=== PATIENT | male | born 1980 | race Caucasian/White ===

== ENCOUNTER → 2017-11-17 12:08 | Outpatient (CLI) | payer MEDICARE, MEDICAID, SELFPAY ==
--- NOTE | 2017-11-17 12:17 | RAD_ITS ---
STUDY: X-RAY CHEST REASON FOR EXAM: Male, 37 years old. Chest pain TECHNIQUE: PA and lateral COMPARISON: None. FINDINGS: The lungs are clear and expanded. There is no demonstrated pleural abnormality. Normal size heart. Normal mediastinum and lavelle. Normal visualized pulmonary arteries. Normal visualized aortic arch and descending thoracic aorta. Normal visualized thoracic spine. Normal visualized ribs, clavicles, and shoulders. There is no demonstrated abnormality of the visualized soft tissue structures of the upper abdomen. RAD/Chest PA and Lateral IMPRESSION: Normal x-ray examination of the chest. Electronically Signed: Peter Hawk MD at 4:45 EDT , Service support ,
== END ==
PROVIDERS: Family Provider Family Medicine; PCP Family Medicine; Visit Provider Family Medicine
DX: R07.9 Chest pain, unspecified (principal)
CPT/HCPCS: 71046

== ENCOUNTER → 2022-07-17 | Outpatient (CLI) | payer OTHER, SELFPAY ==
[2022-07-17 10:13] LABS: Absolute Neutrophil Count 2.4 X10^3/uL (2.0-7.7); Basophil# 0.03 X10^3/uL; Basophil% 0.7 % (0-1); Eosinophil# 0.08 X10^3/uL; Eosinophils% 1.8 % (0-5); Hematocrit 43.3 % (40-54); Hemoglobin 14.6 g/dL (13.0-16.5); Lymphocyte % 34.2 % (19-41); Mean Corp Hgb Conc 33.7 g/dL (32-36); Mean Corpuscular Volume 88.9 fL (80-94); Mean Platelet Vol. 11.2 fl (6.2-12.0); Monocyte# 0.37 X10^3/uL; Monocyte% 8.4 % (0-10); NRBC Flagged by Analyzer 0 % (0-5); Neutrophil % 54.7 % (47-70); Platelet Count 231 K/mm3 (150-450); RBC Distribution Width CV 12.6 % (11.6-14.6); RBC Distribution Width SD 41.2 fl (35.1-43.9); Red Blood Count 4.87 M/mm3 (4.6-6.2); White Blood Count 4.4 K/mm3 (4.4-11.0)
[2022-07-17 10:58] LABS: AST(SGOT) 25 U/L (15-37); Alanine Aminotransfer ALT/SGPT 22 U/L (16-61); Albumin, Serum 3.8 g/dL (3.2-5.0); Alkaline Phosphatase 52 U/L (45-117); Anion Gap 8 (5-15); BUN 16 mg/dL (7-18); BUN/Creat Ratio 15.1 RATIO (10-20); CRP < 2.90 mg/L (0.0-3.0); Calcium,Total 8.9 mg/dL (8.5-10.1); Chloride 104 mmol/L (98-107); Cholesterol 285 mg/dL (200); Creatinine, Serum 1.06 mg/dL (0.70-1.30); EST Glomerular Filtration Rate 81 mL/min (>60); Est Glom Filt Rate - Afr Amer 98 mL/min (>60); Glucose 103 mg/dL (74-106); High Density Lipoprotein 69 mg/dL; Potassium 4.2 mmol/L (3.5-5.1); Protein, Total 7.8 g/dL (6.4-8.2); Sodium Level 136 mmol/L (136-145); Triglycerides 116 mg/dL; Very Low Density Lipoprotein 23 mg/dL (5-40)
== END | disposition home or self-care (01) ==
LOC: MFPLAB 08:52
PROVIDERS: PCP Family Medicine; Referring Provider Family Medicine; Visit Provider Family Medicine
DX: R10.32 Left lower quadrant pain (principal); Z13.220 Encounter for screening for lipoid disorders
CPT/HCPCS: 36415; 80053; 80061; 85025; 86140

== ENCOUNTER → 2022-09-25 | Outpatient (CLI) | payer OTHER, SELFPAY ==
--- NOTE | 2022-09-25 07:08 | CT_ITS ---
STUDY: CT ABDOMEN AND PELVIS WITH CONTRAST REASON FOR EXAM: Male, 42 years old. Several month history of left upper quadrant pain. RADIATION DOSAGE (If Supplied By Facility): CTDIvol = ( 12.89 ) mGy, DLP = ( 679.23 ) mGycm TECHNIQUE: Transaxial images were obtained from the dome of the diaphragm to the symphysis pubis with oral contrast. Oral and amp; IV Readi-CAT and amp; 100mL Isovue-370 was administered. Sagittal and coronal images were reconstructed. Individualized dose optimization techniques were used for this CT. COMPARISON: None. FINDINGS: The visualized lung bases are unremarkable. The visualized portions of the heart are within normal limits. Normal liver. Normal gallbladder and extrahepatic biliary system. Normal spleen. Normal pancreas. Normal bilateral adrenal glands. Normal right kidney. There is a 1 cm cyst in the lateral posterior aspect of the left kidney. There is a small hiatal hernia. Normal small intestine. Mild degree of thickening of the descending colon. Localized colitis should be ruled out. The appendix is visualized and appears normal. Normal abdominal aorta. Normal inferior vena cava. Normal retroperitoneum. Normal urinary bladder. There is a small umbilical hernia containing fat. Normal osseous structures. CT/Abdomen/Pelvis WITH Contrast IMPRESSION: Mild inflammatory changes of the descending colon. Localized colitis should be ruled out. Electronically Signed: Wayne Gray MD at 10:44 EDT ,
[2022-09-25 08:28] LABS: Absolute Lymphocyte Count 1.26 X10^3/uL (0.83-4.51); Absolute Neutrophil Count 3.1 X10^3/uL (2.0-7.7); Basophil# 0.03 X10^3/uL; Basophil% 0.6 % (0-1); Eosinophil# 0.09 X10^3/uL; Eosinophils% 1.8 % (0-5); Hematocrit 42.3 % (40-54); Hemoglobin 14.2 g/dL (13.0-16.5); Lymphocyte # 1.26 X10^3/ul (0.83-4.51); Lymphocyte % 25.5 % (19-41); Mean Corp Hgb Conc 33.6 g/dL (32-36); Mean Corpuscular Hgb 29.6 pg (27.0-32.0); Mean Corpuscular Volume 88.1 fL (80-94); Mean Platelet Vol. 11.1 fl (6.2-12.0); Monocyte# 0.43 X10^3/uL; Monocyte% 8.7 % (0-10); NRBC Flagged by Analyzer 0 % (0-5); Neutrophil # 3.13 X10^3/uL (2.7-7.7); Neutrophil % 63.2 % (47-70); Platelet Count 237 K/mm3 (150-450); RBC Distribution Width CV 12.5 % (11.6-14.6); RBC Distribution Width SD 40.4 fl (35.1-43.9)
[2022-09-25 09:07] LABS: ALB/GLOB Ratio 0.8 RATIO (0.9-2.4); AST(SGOT) 22 U/L (15-37); Alanine Aminotransfer ALT/SGPT 23 U/L (16-61); Albumin, Serum 3.4 g/dL (3.2-5.0); Alkaline Phosphatase 55 U/L (45-117); Anion Gap 5 (5-15); BUN 22 mg/dL (7-18); BUN/Creat Ratio 19.8 RATIO (10-20); CRP < 2.90 mg/L (0.0-3.0); Calcium,Total 8.8 mg/dL (8.5-10.1); Chloride 103 mmol/L (98-107); Creatinine, Serum 1.11 mg/dL (0.70-1.30); EST Glomerular Filtration Rate 77 mL/min (>60); Est Glom Filt Rate - Afr Amer 93 mL/min (>60); Globulin 4.1 g/dL (2.2-4.2); Glucose 98 mg/dL (74-106); Lipase 74 U/L (13-75); Potassium 4.2 mmol/L (3.5-5.1); Protein, Total 7.5 g/dL (6.4-8.2); Sodium Level 136 mmol/L (136-145)
== END | disposition home or self-care (01) ==
PROVIDERS: PCP Family Medicine; Referring Provider Family Medicine; Visit Provider Family Medicine
DX: R10.12 Left upper quadrant pain (principal)
CPT/HCPCS: 36415; 74177; 80053; 83690; 85025; 86140; Q9967

== ENCOUNTER 2022-12-03 07:21 | Day surgery (SDC) | payer OTHER, SELFPAY ==
[2022-12-03 07:42] VITALS: BP 136/91; PULSE 69; RESP 16; TEMP 36.8; O2SAT 96; BMI 26.4
[2022-12-03] MEDS: Lactated Ringers 1,000 ML 15 ML IV ×2 (07:56→08:55)
--- NOTE | 2022-12-03 08:30 | IMM_PTH ---
PATIENT: JENNIFER TINAJERO LOC: EN U#:[id number] AGE/SX: 42/M ROOM: RE12/03/[address]: Dr. Venancio Maldonado MD : 1980 BED: DIS: 12/03/2022 SPEC #: [id number] RECD: 12/03/22 13:18 STATUS: JIM REEde #: [id number] BASILIO: 12/03/22 08:[address]: Venancio Maldonado DEPT: IMMUNOHISTOCHEMISTRY RECD BY: Maia Horner ENTERED: 12/03/22 13:18 SP TYPE: IMMUNO OTHR DR: Dr. Salomon Shukla MD Tissues: B - Stomach, NOS Procedures: H Pylori (initial) PHYSICIAN & INSTITUTION [place] [address] SPECIMEN INFORMATION: Tissue Source: B - Antrum Clinical Info: Left-sided abdominal pain, abnormal CT abdomen, hiatal hernia, colon wall thickening Specimen Number: [id number] CPT code: 34635 METHODOLOGY: Deparaffinized sections of prefer/formalin-fixed tissue or PAP/DQ stained slides are incubated with monoclonal/polyclonal antibodies/oligonucleotide probes. Localization is made via biotin free immunoperoxidase method. Appropriate controls are performed and reacted as expected. Results on target cell population are indicated in the following table: RESULTS: ANTIBODY / CLONE RESULT Block B H Pylori (polyclonal) negative These tests were developed and their performance characteristics determined by [facility]. They may not have been cleared or approved by the U.S. Food and Drug Administration. The FDA has determined that such clearance or approval is not necessary. The above immunohistochemical/dualISH markers are ordered and reviewed by the Pathologist. INTERPRETATION: B. Antrum, biopsy: Negative for Helicobacter pylori organisms. AM:melissa 12/04/2022
--- NOTE | 2022-12-03 08:30 | EGD_PTH ---
PATIENT: JENNIFER TINAJERO LOC: [facility] U#:[id number] AGE/SX: 42/M ROOM: RE12/03/[address]: Dr. Venancio Maldonado MD : 1980 BED: DIS: 12/03/2022 SPEC #: [id number] RECD: 12/03/22 11:05 STATUS: JIM BARRIENTOSEde #: [id number] BASILIO: 12/03/22 08:[address]: Venancio Maldonado DEPT: SURGICAL PATHOLOGY RECD BY: Domitila Tyson ENTERED: 12/03/22 11:19 SP TYPE: EGD BIOPSY OTHR DR: Dr. Salomon Shukla MD Tissues: A - Duodenum, NOS B - Gastric mucous membrane C - Esophagus, NOS D - POLYP E - Esophagus, NOS Procedures: Special Stain Group II Surgery Specimen Level IV Alcian Blue/PAS (control) HEADER OPERATION: Colonoscopy, EGD with biopsies and polypectomy (MAC) PRE-OP DIAGNOSIS: Left-sided abdominal pain, abnormal CT abdomen, hiatal hernia, colon wall thickening TISSUE SUBMITTED: A - Duodenal bulb mucosa biopsy, B - Antrum biopsy for H. pylori and path, C - Gastroesophageal junction biopsy, D - Polypoid mass at gastroesophageal junction, E - Mid esophageal nodule biopsy MICROSCOPIC DIAGNOSIS A. Duodenal bulb, biopsy: No pathologic change. B. Gastric antrum, biopsy: Minimal chronic inflammation. See comment. C. Gastroesophageal junction, biopsy: No pathologic change. No evidence of goblet cell metaplasia. See comment. D. Polypoid mass at gastroesophageal junction, biopsy: Fragments of hyperplastic polyp. E. Mid esophageal nodule, biopsy: Fragments of benign squamous mucosa. AM:melissa 12/04/2022 COMMENT B. The results of immunohistochemistry for Helicobacter pylori will be reported separately ([id number]). C. Alcian blue/PAS stain with matched control supports the above diagnosis. MICROSCOPIC DESCRIPTION Slides are reviewed. GROSS DESCRIPTION A - Received in fixative is one container labeled with the patient's name and designated duodenal bulb mucosa. The specimen consists of two irregular fragments of light cook soft tissue that in aggregate measure 0.5 x 0.5 x 0.1 cm. The specimen is totally submitted in one cassette. B - Received in fixative is one container labeled with the patient's name and designated antrum biopsy. The specimen consists of one irregular fragment of light cook soft tissue that measures 0.4 x 0.4 x 0.1 cm. The specimen is totally submitted in one cassette. C - Received in fixative is one container labeled with the patient's name and designated GE junction biopsy. The specimen consists of multiple irregular fragments of light cook soft tissue that in aggregate measure 0.5 x 0.3 x 0.1 cm. The specimen is totally submitted in one cassette. D - Received in fixative is one container labeled with the patient's name and designated polypoid mass at GE junction. The specimen consists of multiple irregular fragments of light cook soft tissue that in aggregate measure 1.5 x 0.7 x 0.2 cm. The specimen is totally submitted in one cassette. E - Received in fixative is one container labeled with the patient's name and designated mid esophageal nodule. The specimen consists of multiple irregular fragments of light cook soft tissue that in aggregate measure 1.2 x 0.3 x 0.1 cm. The specimen is totally submitted in one cassette. / SJ:rg 12/03/2022 TC:3 CPT: 30187 x5, 84990
--- NOTE | 2022-12-03 08:35 | PCM.HP.BLA ---
History and Physical Date of Admission: 12/03/22 MR#: [id number] Acct: [id number] Name: JENNIFER TINAJERO Rep #: [id number] : 1980 Provider: Dr. Venancio Maldonado MD Age/Sex: 42/M Location: [facility] Status: Signed Intake Vital Signs 10/06/2313:54 Height 5 ft 9 in Weight: 190 lb BMI 28.0 BP 132/89 H Blood Pressure Location Rt brachial Position Sitting Respiration 17 Pulse 77 Pulse Source Monitor Temp 98.1 F Temp Source Temporal Pulse Oximetry (%) 97 Intake Visit Reasons: UPPER & LOWER Chief Complaint: ABD PAIN Allergies No Known Allergies Allergy (Unverified 10/06/22 14:55) Nurse's Note: PT USES [employer] PFSH Medical History (Updated 10/06/22 @ 16:[address] Venancio Maldonado MD) History of recreational drug use Right hand amputee Family History (Updated 10/06/22 @ 14:54 by Reema Siddiqi) Grandmother Colon cancerGrandfather Heart diseaseAunt CVA (cerebral vascular accident) HPI HPI HPI: Patient is a 42-year-old male who presents for need to schedule diagnostic colonoscopy secondary to left lower quadrant discomfort. They are referred for surgical consultation from Dr. Salomon Shukla. Patient has not had prior colonoscopy. He states that his pain is actually in the left upper quadrant and has remained uncomfortable for a few months. However, I pointed out that we were due to visit June 2022 he states that his symptoms preceded this date by a couple of months as well. He reports that he initially believed this was related to a back injury, but then it became clear this was more of an abdominal concern. He states of late he has felt pain and pressure. He he insists that his bowel movements have been normal. He clarifies that they are nonbloody, formed, and he is not plagued by either diarrhea or constipation. He confirms a bowel movement frequency of 1/day. Further, he details that he has not had a loss of appetite. He states that while he drinks water, coffee, and beer he has drastically cut back on his coffee so that he is drinking just 1 cup/day. He endorses a history of acid reflux where he tastes acid burning in the back of his throat, but he states that this bothering him only occasionally. He is not experiencing nighttime awakenings with the symptoms. He denies any associated heartburn. Patient has a family history of colon cancer diagnosed in his paternal grandmother in her late 60s. He denies any awareness of diverticulitis or inflammatory bowel disease. Incidentally, he notes that his underwent a total abdominal proctocolectomy for her own history of ulcerative colitis. The patient is not prescribed anticoagulants/blood thinners. Relevant prior abdominal surgical history includes: No history of abdominal surgery Previous work-up has included: CT imaging of the abdomen pelvis performed 09/25/2022 which identified evidence of a hiatal hernia, small umbilical hernia, and localized colitis of the left colon. ROS General General: No weight change, appetite, fatigue, colon cancer, breast cancer or weakness HEENT HEENT: No difficulty swallowing, eye injury, eye surgery, swollen glands or hoarseness Endo Endocrine: No thyroid disease, diabetes mellitus, thyroid cancer, Hair loss, heat intolerance or cold intolerance Skin Skin: No rash or changing moles Breast Breast: No left breast lump, right breast lump, nipple discharge, breast pain, abnormal mammogram, abnormal US or breast enlargement Musc Musculoskeletal: Yes back problems; No arthritis, rheumatoid arthritis, gout or joint pain Cardio Cardiovascular: No murmur, pacemaker, heart disease, atrial fibrillation, high blood pressure, heart attack, heart stent, palpitations, shortness of breat with exertion or chest pain Psych Psychiatric: Yes anxiety; No depression or hearing voices Resp Respiratory: No shortness of breath, No sleep apnea, No cough, No COPD, No asthma, No emphysema and No wheezing Gastro Gastrointestinal: No abdominal pain, No nausea or vomiting, No diarrhea, No constipation, No blood in stool, Yes acid reflux, No hemorrhoids, No ulcers, No gallbladder problem and No black,tarry stools Steven Hematologic: No blood thinners, No blood disorders, No bleeding, No anemia and No blood clots Neuro Neurologic: No system reviewed and no additional complaints, except as documented, No as per HPI, No abnormal gait, No abnormal hearing, No abnormal movements, No abnormal speech, No behavioral changes, No burning sensations, No confusion, No convulsions, No disequilibrium, No dizziness, No localized weakness, No frequent falls, No headache(s), No lack of coordination, No loss of vision, No memory loss, No numbness, No other visual disturbances, No radicular pain, No restless legs, No sensory deficit, No syncope, No tingling, No tremor(s), No weakness and No other Exam Const General: cooperative, healthy appearing, comfortable and no acute distress Resp Effort & Inspection: normal respiratory effort GI Other: Toned abdomen without distention. Umbilical hernia readily visible and is partially reducible with mild tenderness. Patient denies any significant tenderness x4 quadrant palpation today. Assessment and Plan Assessment and Plan (1) Left sided abdominal pain: Status: Chronic Comment: This is a 42-year-old male who presents with a several month history of left upper versus left lower quadrant abdominal tenderness (patient notes that he had lower abdominal tenderness earlier in the course of his symptoms, but finds his tenderness more focused in the left upper quadrant of late). Patient has minimal tenderness with my exam today. As part of his work-up he received a CT of the abdomen pelvis on 09/25/2022 which showed a small hiatal hernia, a small umbilical hernia, and evidence of localized left-sided colitis. Patient insists on his bowel movements have been normal throughout his entire experience of symptoms. Given his CT findings and this nonspecific abdominal discomfort, I have recommended we consider both upper and lower endoscopy to try to assess for a source. These procedures were described in detail including the need for a bowel prep prior to the colonoscopy. Patient expresses an understanding of this information and a willingness to proceed as described. I did discuss with him briefly the umbilical hernia findings and recommended that he opt for elective repair in the near future as is only likely to grow in size. However, at its present size I think he is at low risk for bowel entrapment. Patient confirms that he will give it some thought. Plan: Plan will be to complete EGD and diagnostic colonoscopy on first mutually agreeable date under local MAC. Pre-procedure prep discussed and paper instructions provided. Patient is also made aware that he will need to have a security patrol driver with him the day of the procedure. (2) Abnormal CT of the abdomen: Status: Acute (3) Hiatal hernia: Status: Acute (4) Colon wall thickening: Status: Acute (5) Umbilical hernia without obstruction or gangrene: Status: Acute I have examined the patient and the H&P has been reviewed. There are no clinical changes since date of exam. Patient confirms that he completed a prep in anticipation of today's procedure. He states it initially made him sick with some nausea and vomiting, but ultimately the prep was successful and his output is now clear. He denies any abdominal discomfort this morning, but states he has been thinking more about his ongoing discomfort and questions whether it may be related to some chronic chest wall pain following a traumatic snowboarding accident where he is convinced he fractured a number of ribs. Nevertheless, he did have a hiatal hernia seen on prior CT imaging and we will look to evaluate this more fully with the EGD as described above. Proceed to endoscopy suite for procedures as scheduled.
[2022-12-03 09:50] VITALS: BP 110/63; BP 136/91; PULSE 65; RESP 18; TEMP 36.4; O2SAT 97
--- NOTE | 2022-12-03 09:54 | OP.EGD_ITS ---
Patient Name: Cliff Vicente Procedure Date: 12/03/2022 8:29 AM Date of : 1980 Age: 42 Procedure: Upper GI endoscopy Indications: Abdominal pain in the left upper quadrant, Suspected esophageal reflux, Abnormal CT of the GI tract, Hiatal hernia Providers: Venancio Maldonado MD Referring MD: Venancio Maldonado MD Medicines: See the Anesthesia note for documentation of the administered medications Patient Profile: Refer to note in patient chart for documentation of history and physical. Patient has symptoms of chronic left upper quadrant abdominal pain. Complications: No immediate complications. Estimated blood loss: Minimal. Procedure: Pre-Anesthesia Assessment: - The heart rate, respiratory rate, oxygen saturations, blood pressure, adequacy of pulmonary ventilation, and response to care were monitored throughout the procedure. After obtaining informed consent, the endoscope was passed under direct vision. Throughout the procedure, the patient's blood pressure, pulse, and oxygen saturations were monitored continuously. The Colonoscope was introduced through the mouth, and advanced to the third part of duodenum. The upper GI endoscopy was accomplished without difficulty. The patient tolerated the procedure well. Scope In: 8:46:33 AM Scope Out: 9:15:12 AM Total Procedure Duration Time 0 hours 28 minutes 39 seconds Findings: The first portion of the duodenum and second portion of the duodenum were normal. No biopsies or other specimens were collected for this exam. Localized mildly erythematous mucosa without active bleeding and with no stigmata of bleeding was found in the duodenal bulb. Biopsies were taken with a cold forceps for histology. Diffuse mildly erythematous mucosa without bleeding was found in the gastric antrum. Biopsies were taken with a cold forceps for Helicobacter pylori cultures. The Z-line was irregular and was found 41 cm from the incisors. A medium-sized hiatal hernia was present. No biopsies or other specimens were collected for this exam. A single 15 mm polyp with no bleeding was found 42 cm from the incisors. The polyp was removed with a hot snare. Polyp resection was incomplete. The resected tissue was retrieved. Estimated blood loss was minimal. A few 5 mm mucosal nodules with a localized distribution were found in the middle third of the esophagus. Biopsies were taken with a cold forceps for histology. The exam was otherwise without abnormality. Impression: - Normal first portion of the duodenum and second portion of the duodenum. No specimens collected. - Erythematous duodenopathy. Biopsied. - Erythematous mucosa in the antrum. Biopsied. - Z-line irregular, 41 cm from the incisors. - Medium-sized hiatal hernia. No specimens collected. - Esophageal polyp(s) were found. Incomplete resection. Resected tissue retrieved. - Mucosal nodule found in the esophagus. Biopsied. - The examination was otherwise normal. Recommendation: - Discharge patient to home (via wheelchair). - Soft diet today. - Use Protonix (pantoprazole) 40 mg PO BID today. - Await pathology results. - Telephone my office for pathology results in 1 week. - Continue present medications. Procedure Code(s): --- Professional --- 94943, Esophagogastroduodenoscopy, flexible, transoral; with removal of tumor(s), polyp(s), or other lesion(s) by snare technique 85601, 59, Esophagogastroduodenoscopy, flexible, transoral; with biopsy, single or multiple Diagnosis Code(s): --- Professional --- K31.89, Other diseases of stomach and duodenum K22.8, Other specified diseases of esophagus K44.9, Diaphragmatic hernia without obstruction or gangrene R10.12, Left upper quadrant pain R93.3, Abnormal findings on diagnostic imaging of other parts of digestive tract CPT copyright 2017 [employer]. All rights reserved. The codes documented in this report are preliminary and upon hand kiss setter review may be revised to meet current compliance requirements. Venancio Maldonado MD 12/03/2022 9:53:46 AM This report has been signed electronically. Number of Addenda: 0 Note Initiated On: 12/03/2022 8:29 AM
[2022-12-03 09:55] VITALS: BP 111/75; BP 136/91; PULSE 58; RESP 71; O2SAT 96
--- NOTE | 2022-12-03 09:55 | OP.CCLET_ITS ---
12/03/2022 Salomon Shukla [address] [place] [address] Re : Upper GI endoscopy procedure for Cliff Vicente Dear Dr. Shukla This procedure was performed on November. My impressions and recommendations are as follows: Impressions : - Normal first portion of the duodenum and second portion of the duodenum. No specimens collected. - Erythematous duodenopathy. Biopsied. - Erythematous mucosa in the antrum. Biopsied. - Z-line irregular, 41 cm from the incisors. - Medium-sized hiatal hernia. No specimens collected. - Esophageal polyp(s) were found. Incomplete resection. Resected tissue retrieved. - Mucosal nodule found in the esophagus. Biopsied. - The examination was otherwise normal. Recommendations : - Discharge patient to home (via wheelchair). - Soft diet today. - Use Protonix (pantoprazole) 40 mg PO BID today. - Await pathology results. - Telephone my office for pathology results in 1 week. - Continue present medications. My findings are described in the full procedure note, which is enclosed. If I can be of further assistance, please feel free to contact me at Doctor phone number(s): , Work: . Sincerely, Venancio Maldonado MD 12/03/2022 9:53:46 AM This report has been signed electronically.
[2022-12-03 10:00] VITALS: BP 112/78; BP 136/91; PULSE 62; RESP 18; O2SAT 96
[2022-12-03 10:05] VITALS: BP 108/73; BP 136/91; PULSE 59; RESP 18; TEMP 36.3; O2SAT 97
[2022-12-03 10:33] VITALS: BP 136/91
--- NOTE | 2022-12-03 10:57 | OP.CCLET_ITS ---
12/03/2022 Salomon Shukla [address] [place] [address] Re : Colonoscopy procedure for Lciff Jules Dear Dr. Shukla This procedure was performed on November. My impressions and recommendations are as follows: Impressions : - The entire examined colon is normal on direct and retroflexion views. - No specimens collected. Recommendations : - Discharge patient to home (via wheelchair). - Resume previous diet today. - Continue present medications. - Repeat colonoscopy in 10 years for screening purposes. My findings are described in the full procedure note, which is enclosed. If I can be of further assistance, please feel free to contact me at Doctor phone number(s): , Work: . Sincerely, Vneancio Maldonado MD 12/03/2022 10:56:47 AM This report has been signed electronically.
--- NOTE | 2022-12-03 10:57 | OP.COLON_ITS ---
Patient Name: Cliff Vicente Procedure Date: 12/03/2022 9:15 AM Date of : 1980 Age: 42 Procedure: Colonoscopy Indications: Abdominal pain in the left upper quadrant Providers: Venancio Maldonado MD Referring MD: Venancio Maldonado MD Medicines: See the Anesthesia note for documentation of the administered medications Patient Profile: Refer to note in patient chart for documentation of history and physical. Patient has symptoms of chronic left upper quadrant abdominal pain. Last Colonoscopy: none. The patient's first colonoscopy is today. Complications: No immediate complications. Estimated blood loss: None. Procedure: Pre-Anesthesia Assessment: - The heart rate, respiratory rate, oxygen saturations, blood pressure, adequacy of pulmonary ventilation, and response to care were monitored throughout the procedure. After I obtained informed consent, the scope was passed under direct vision. Throughout the procedure, the patient's blood pressure, pulse, and oxygen saturations were monitored continuously. The Colonoscope was introduced through the anus and advanced to the cecum, identified by the appendiceal orifice, ileocecal valve and palpation. The colonoscopy was performed without difficulty. The quality of the bowel preparation was adequate to identify polyps. Scope In: 9:17:22 AM Scope Withdrawal Time 0 hours 14 minutes 47 seconds Scope Out: 9:42:00 AM Total Procedure Duration Time 0 hours 24 minutes 38 seconds Findings: The perianal and digital rectal examinations were normal. Pertinent negatives include no palpable rectal lesions. The entire examined colon appeared normal on direct and retroflexion views. Impression: - The entire examined colon is normal on direct and retroflexion views. - No specimens collected. Recommendation: - Discharge patient to home (via wheelchair). - Resume previous diet today. - Continue present medications. - Repeat colonoscopy in 10 years for screening purposes. Procedure Code(s): --- Professional --- 21730, Colonoscopy, flexible; diagnostic, including collection of specimen(s) by brushing or washing, when performed (separate procedure) Diagnosis Code(s): --- Professional --- R10.12, Left upper quadrant pain CPT copyright 2017 [employer]. All rights reserved. The codes documented in this report are preliminary and upon pharmacist in charge owner review may be revised to meet current compliance requirements. Venancio Maldonado MD 12/03/2022 10:56:47 AM This report has been signed electronically. Number of Addenda: 0 Note Initiated On: 12/03/2022 9:15 AM
== END 2022-12-03 10:40 | disposition home or self-care (01) ==
LOC: EN 07:22 → AC 07:25
PROVIDERS: PCP Family Medicine; Referring Provider Surgery; Visit Provider Surgery
PROC: 0DJD8ZZ Inspection of Lower Intestinal Tract, Via Natural or Artificial Opening Endoscopic (ICD-10-PCS; CPT 45378; principal; 2022-12-03 08:25)
DX: R10.12 Left upper quadrant pain (principal); K44.9 Diaphragmatic hernia without obstruction or gangrene; Z80.0 Family history of malignant neoplasm of digestive organs; K42.9 Umbilical hernia without obstruction or gangrene; K22.81 Esophageal polyp; R93.3 Abnormal findings on diagnostic imaging of other parts of digestive tract; K31.89 Other diseases of stomach and duodenum; K22.89 Other specified disease of esophagus
CPT/HCPCS: 45378; 43239; 43251; 88305; 88313; 88342; J7120; J2405

== ENCOUNTER 2023-04-22 07:30 | Day surgery (SDC) | payer OTHER, SELFPAY ==
[2023-04-22 08:01] VITALS: BP 132/88; PULSE 68; RESP 18; TEMP 36.7; O2SAT 99; BMI 26.0
[2023-04-22] MEDS: Lactated Ringers 1,000 ML 15 ML IV (08:05)
--- NOTE | 2023-04-22 08:30 | EGD_PTH ---
PATIENT: JENNIFER TINAJERO LOC: EN U#:[id number] AGE/SX: 42/M ROOM: RE04/22/[address]: Dr. Venancio Maldonado MD : 1980 BED: DIS: 04/22/2023 SPEC #: [id number] RECD: 04/22/23 13:20 STATUS: JIM VICENTE #: [id number] BASILIO: 04/22/23 08:[address]: Venancio Maldonado DEPT: SURGICAL PATHOLOGY RECD BY: Babita Noel ENTERED: 04/22/23 13:21 SP TYPE: EGD BIOPSY OT DR: Dr. Salomon Shukla MD Tissues: A - Esophagus, NOS B - Gastric mucous membrane Procedures: Special Stain Group II Surgery Specimen Level IV Alcian Blue/PAS (control) HEADER OPERATION: EGD with biopsy, polypectomy and hemostasis PRE-OP DIAGNOSIS: Hyperplastic polyp of esophagus TISSUE SUBMITTED: A - Gastroesophageal junction biopsy, B - Antrum biopsy for H. pylori and path MICROSCOPIC DIAGNOSIS A. Gastroesophageal junction, biopsy: Chronic inflammation. No evidence of goblet cell metaplasia. See comment. B. Gastric antrum, biopsy: Minimal chronic inflammation. AM:melissa 04/23/2023 COMMENT A. Alcian blue/PAS stain with matched control supports the above diagnosis. B. The results of immunohistochemistry for Helicobacter pylori will be reported separately ([id number]). MICROSCOPIC DESCRIPTION Slides are reviewed. GROSS DESCRIPTION A - Received in fixative is one container labeled with the patient's name and designated GE junction biopsy. The specimen consists of multiple irregular fragments of light cook soft tissue that in aggregate measure 2.0 x 0.5 x 0.1 cm. The specimen is totally submitted in one cassette. B - Received in fixative is one container labeled with the patient's name and designated antrum biopsy. The specimen consists of multiple irregular fragments of light cook soft tissue that in aggregate measure 1.0 x 0.3 x 0.1 cm. The specimen is totally submitted in one cassette. / SJ:melissa 04/22/2023 TC:3 CPT: 91385 x2, 46566
--- NOTE | 2023-04-22 08:30 | IMM_PTH ---
PATIENT: JENNIFER TINAJERO LOC: EN U#:[id number] AGE/SX: 42/M ROOM: RE04/22/[address]: Dr. Venancio Maldonado MD : 1980 BED: DIS: 04/22/2023 SPEC #: [id number] RECD: 04/22/23 14:42 STATUS: JIM REEde #: [id number] BASILIO: 04/22/23 08:[address]: Venancio Maldonado DEPT: IMMUNOHISTOCHEMISTRY RECD BY: Maia Horner ENTERED: 04/22/23 14:43 SP TYPE: IMMUNO OTHR DR: Dr. Salomon Shukla MD Tissues: B - Stomach, NOS Procedures: H Pylori (initial) PHYSICIAN & INSTITUTION [place] [id number] SPECIMEN INFORMATION: Tissue Source: B - Antrum Clinical Info: Hyperplastic polyp of esophagus Specimen Number: [id number] CPT code: 17180 METHODOLOGY: Deparaffinized sections of prefer/formalin-fixed tissue or PAP/DQ stained slides are incubated with monoclonal/polyclonal antibodies/oligonucleotide probes. Localization is made via biotin free immunoperoxidase method. Appropriate controls are performed and reacted as expected. Results on target cell population are indicated in the following table: RESULTS: ANTIBODY / CLONE RESULT Block B H Pylori (polyclonal) negative These tests were developed and their performance characteristics determined by [facility]. They may not have been cleared or approved by the U.S. Food and Drug Administration. The FDA has determined that such clearance or approval is not necessary. The above immunohistochemical/dualISH markers are ordered and reviewed by the Pathologist. INTERPRETATION: B. Antrum, biopsy: Negative for H pylori organisms. AM/bl 04/26/2023
--- NOTE | 2023-04-22 08:37 | PCM.HP.BLA ---
History and Physical Date of Admission: 04/22/23 Date of Service: 03/30/23 MR#: [id number] Acct: [id number] Name: JENNIFER VICENTE Rep #: [id number] : 1980 Provider: Dr. Venancio Maldonado MD Age/Sex: 42/M Location: [facility] Status: Signed Intake Vital Signs 12/03/2306:42 03/30/2314:44 Height 5 ft 9 in 5 ft 9 in Weight: 180 lb 8 oz BMI 26.6 BP 160/100 H Blood Pressure Location Rt brachial Position Sitting Respiration 18 Pulse 71 Pulse Source Monitor Temp 98.0 F Temp Source Temporal Pulse Oximetry (%) 96 Oxygen Delivery Method room air Intake Visit Reasons: UPDATE H&P Chief Complaint: update [place] Supervisor Required: No Is patient in pain?: No Allergies No Known Allergies Allergy (Verified 03/30/23 14:45) Medications pantoprazole 40 mg tablet,delayed release (Protonix) 40 mg PO DAILY #90 tabs 03/17/23 [Rx Confirmed 03/30/23] PFSH Medical History Former smoker Gastric reflux History of hiatal hernia History of recreational drug use Right hand amputee Family History Grandmother Colon cancerGrandfather Heart diseaseAunt CVA (cerebral vascular accident) Social History Smoking Status: Former smoker HPI HPI HPI: Patient is a 42-year-old male who arrives for update H&P ahead of his planned repeat, surveillance EGD. He underwent EGD with finding of a large GE junction hyperplastic polyp on 12/03/2022. Although a lot of this lesion was removed with biopsy, is sensitive location and sheer size made complete removal dubious. Instead, I suggested we proceed with aggressive management of his acid reflux to see if removing the inflammatory impetus would naturally decrease the size of this lesion. Mr. Vicente reports that he misinterpreted this appointment and actually fasted prior to expecting a procedure today. However, he does report ongoing improvement with his symptoms and states that his stomach pain is just occasional at this point. He notes that he generally works late and therefore eats right before going to bed and this seems to be when he feels the pain. Later in the visit he suggest the actual frequency is between 1 and 2 times per week. He also confesses that he has gotten away from taking his PPI in a scheduled fashion and now takes it only episodically. He states that he has gone to this frequency over the last month to month and a half. Below is recapitulated from patient's prior visit for ease of review: Patient is a 42-year-old male who presents for need to schedule diagnostic colonoscopy secondary to left lower quadrant discomfort. They are referred for surgical consultation from Dr. Salomon Shukla. Patient has not had prior colonoscopy. He states that his pain is actually in the left upper quadrant and has remained uncomfortable for a few months. However, I pointed out that we were due to visit June 2022 he states that his symptoms preceded this date by a couple of months as well. He reports that he initially believed this was related to a back injury, but then it became clear this was more of an abdominal concern. He states of late he has felt pain and pressure. He he insists that his bowel movements have been normal. He clarifies that they are nonbloody, formed, and he is not plagued by either diarrhea or constipation. He confirms a bowel movement frequency of 1/day. Further, he details that he has not had a loss of appetite. He states that while he drinks water, coffee, and beer he has drastically cut back on his coffee so that he is drinking just 1 cup/day. He endorses a history of acid reflux where he tastes acid burning in the back of his throat, but he states that this bothering him only occasionally. He is not experiencing nighttime awakenings with the symptoms. He denies any associated heartburn. Patient has a family history of colon cancer diagnosed in his paternal grandmother in her late 60s. He denies any awareness of diverticulitis or inflammatory bowel disease. Incidentally, he notes that his underwent a total abdominal proctocolectomy for her own history of ulcerative colitis. The patient is not prescribed anticoagulants/blood thinners. Relevant prior abdominal surgical history includes: No history of abdominal surgery Previous work-up has included: CT imaging of the abdomen pelvis performed 09/25/2022 which identified evidence of a hiatal hernia, small umbilical hernia, and localized colitis of the left colon. ROS General General: No weight change, appetite, fatigue, colon cancer, breast cancer or weakness HEENT HEENT: No difficulty swallowing, eye injury, eye surgery, swollen glands or hoarseness Endo Endocrine: No thyroid disease, diabetes mellitus, thyroid cancer, Hair loss, heat intolerance or cold intolerance Skin Skin: No rash or changing moles Breast Breast: No left breast lump, right breast lump, nipple discharge, breast pain, abnormal mammogram, abnormal US or breast enlargement Musc Musculoskeletal: Yes back problems; No arthritis, rheumatoid arthritis, gout or joint pain Cardio Cardiovascular: No murmur, pacemaker, heart disease, atrial fibrillation, high blood pressure, heart attack, heart stent, palpitations, shortness of breat with exertion or chest pain Psych Psychiatric: Yes anxiety; No depression or hearing voices Resp Respiratory: No shortness of breath, No sleep apnea, No cough, No COPD, No asthma, No emphysema and No wheezing Gastro Gastrointestinal: No abdominal pain, No nausea or vomiting, No diarrhea, No constipation, No blood in stool, Yes acid reflux, No hemorrhoids, No ulcers, No gallbladder problem and No black,tarry stools Steven Hematologic: No blood thinners, No blood disorders, No bleeding, No anemia and No blood clots Neuro Neurologic: No system reviewed and no additional complaints, except as documented, No as per HPI, No abnormal gait, No abnormal hearing, No abnormal movements, No abnormal speech, No behavioral changes, No burning sensations, No confusion, No convulsions, No disequilibrium, No dizziness, No localized weakness, No frequent falls, No headache(s), No lack of coordination, No loss of vision, No memory loss, No numbness, No other visual disturbances, No radicular pain, No restless legs, No sensory deficit, No syncope, No tingling, No tremor(s), No weakness and No other Exam Const General: cooperative, comfortable and no acute distress Orientation: alert, awake and oriented x3 Assessment and Plan Assessment and Plan (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 This was biopsy-proven from EGD performed earlier this year in November. Mr. Vicente, encouragingly, reports significant improvement in his discomfort and far less frequency in his symptoms. Yet, he is still reporting some discomfort and has taken upon himself to decrease his PPI frequency to be taken only episodically. I shared with him that this medication must be taken consistently to have the desired effect and that this may compromise in some ways his response to this medication for reduction in the size of his polyp. I used hand drawings to illustrate how this polyp may offer and mechanical obstruction to the full function of the lower esophageal sphincter and that I would, moreover, advise that he refrain from eating or drinking anything significant for 3 hours prior to lying in bed so that this too will minimize his acid exposure. Mr. Vicente suggests understanding of this information, but is adamant that he would like to proceed with his scope before the year is out. We will look to fulfill this request with the open time in the endoscopy suite. Plan: ? Patient encouraged to take PPI daily and space mealtime from bedtime ? Plan for surveillance EGD with biopsy at first mutually agreeable date I have examined the patient and the H&P has been reviewed. There are no clinical changes since date of exam. Mr. Vicente denies any further issues and confirms that he has returned to daily usage of his Protonix. Will proceed for surveillance EGD as discussed above.
[2023-04-22 09:30] VITALS: BP 132/88; BP 98/56; PULSE 62; RESP 16; TEMP 36.1; O2SAT 96
--- NOTE | 2023-04-22 09:31 | OP.CCLET_ITS ---
04/22/2023 Salomon Shukla [address] [place] [address] Re : Upper GI endoscopy procedure for Cliff Vicente Dear Dr. Shukla This procedure was performed on April. My impressions and recommendations are as follows: Impressions : - No gross lesions in the ampulla, in the duodenal bulb, in the first portion of the duodenum and in the second portion of the duodenum. - Erythematous mucosa in the antrum. Biopsied. - Z-line irregular, 42 cm from the incisors. No specimens collected. - A single gastroesophageal junction polyp. - Normal esophagus. Recommendations : - Discharge patient to home (via wheelchair). - Soft diet for 3 days. - Continue present medications. - Await pathology results. - Telephone my office for pathology results in 1 week. My findings are described in the full procedure note, which is enclosed. If I can be of further assistance, please feel free to contact me at Doctor phone number(s): , Work: . Sincerely, Venancio Maldonado MD 04/22/2023 9:30:14 AM This report has been signed electronically.
--- NOTE | 2023-04-22 09:31 | OP.EGD_ITS ---
Patient Name: lCiff Vicente Procedure Date: 04/22/2023 8:23 AM Date of : 1980 Age: 42 Procedure: Upper GI endoscopy Indications: Heartburn, Follow-up of gastric polyps Providers: Venancio Maldonado MD Referring MD: Venancio Maldonado MD Medicines: See the Anesthesia note for documentation of the administered medications Patient Profile: Refer to note in patient chart for documentation of history and physical. Complications: No immediate complications. Estimated blood loss: Minimal. Procedure: Pre-Anesthesia Assessment: - The heart rate, respiratory rate, oxygen saturations, blood pressure, adequacy of pulmonary ventilation, and response to care were monitored throughout the procedure. After obtaining informed consent, the endoscope was passed under direct vision. Throughout the procedure, the patient's blood pressure, pulse, and oxygen saturations were monitored continuously. The Endoscope was introduced through the mouth, and advanced to the second part of duodenum. The upper GI endoscopy was somewhat difficult due to excessive bleeding. Successful completion of the procedure was aided by controlling the bleeding. The patient tolerated the procedure well. Scope In: 8:44:26 AM Scope Out: 9:22:17 AM Total Procedure Duration Time 0 hours 37 minutes 51 seconds Findings: No gross lesions were noted in the ampulla, in the duodenal bulb, in the first portion of the duodenum and in the second portion of the duodenum. Estimated blood loss: none. Localized mildly erythematous mucosa without bleeding was found in the gastric antrum. Biopsies were taken with a cold forceps for histology. Estimated blood loss was minimal. The Z-line was irregular and was found 42 cm from the incisors. No biopsies or other specimens were collected for this exam. A single 8 mm semi-sessile polyp with no bleeding and no stigmata of recent bleeding was found at the gastroesophageal junction. Polyp resection was incomplete due to the polypectomy being technically difficult and complex. Estimated blood loss: 5 mL requiring treatment with placement of hemostatic clip(s). The esophagus was normal. Impression: - No gross lesions in the ampulla, in the duodenal bulb, in the first portion of the duodenum and in the second portion of the duodenum. - Erythematous mucosa in the antrum. Biopsied. - Z-line irregular, 42 cm from the incisors. No specimens collected. - A single gastroesophageal junction polyp. - Normal esophagus. Recommendation: - Discharge patient to home (via wheelchair). - Soft diet for 3 days. - Continue present medications. - Await pathology results. - Telephone my office for pathology results in 1 week. Procedure Code(s): --- Professional --- 39709, Esophagogastroduodenoscopy, flexible, transoral; with biopsy, single or multiple Diagnosis Code(s): --- Professional --- K31.89, Other diseases of stomach and duodenum K22.89, Other specified disease of esophagus K22.82, Esophagogastric junction polyp R12, Heartburn K31.7, Polyp of stomach and duodenum CPT copyright 2021 [employer]. All rights reserved. The codes documented in this report are preliminary and upon computer language coder review may be revised to meet current compliance requirements. Venancio Maldonado MD 04/22/2023 9:30:14 AM This report has been signed electronically. Number of Addenda: 0 Note Initiated On: 04/22/2023 8:23 AM
[2023-04-22 09:35] VITALS: BP 132/88; BP 93/46; PULSE 71; RESP 16; O2SAT 97
[2023-04-22 09:40] VITALS: BP 132/88; BP 99/57; PULSE 66; RESP 16; O2SAT 97
[2023-04-22 09:45] VITALS: BP 132/88; BP 98/70; PULSE 55; RESP 16; TEMP 36.1; O2SAT 97
[2023-04-22 10:04] VITALS: BP 132/88
== END 2023-04-22 10:06 | disposition home or self-care (01) ==
LOC: EN 07:30 → AC 07:32
PROVIDERS: PCP Family Medicine; Referring Provider Surgery; Visit Provider Surgery
PROC: 0DJ08ZZ Inspection of Upper Intestinal Tract, Via Natural or Artificial Opening Endoscopic (ICD-10-PCS; CPT 43235; principal; 2023-04-22 08:25)
DX: K21.9 Gastro-esophageal reflux disease without esophagitis (principal); K31.7 Polyp of stomach and duodenum; K22.82 Esophagogastric junction polyp; K29.50 Unspecified chronic gastritis without bleeding; Z87.19 Personal history of other diseases of the digestive system; Z87.891 Personal history of nicotine dependence; Z80.0 Family history of malignant neoplasm of digestive organs
CPT/HCPCS: 43239; 88305; 88313; 88342; J7120; J2405

== ENCOUNTER → 2023-07-14 | Outpatient (CLI) | payer OTHER, SELFPAY ==
[2023-07-14 17:36] LABS: Absolute Lymphocyte Count 1.64 X10^3/uL (0.83-4.51); Absolute Neutrophil Count 3.2 X10^3/uL (2.0-7.7); Basophil# 0.03 X10^3/uL; Basophil% 0.5 % (0-1); Eosinophil# 0.12 X10^3/uL; Eosinophils% 2.2 % (0-5); Hematocrit 40.4 % (40-54); Hemoglobin 13.4 g/dL (13.0-16.5); Lymphocyte # 1.64 X10^3/ul (0.83-4.51); Mean Corp Hgb Conc 33.2 g/dL (32-36); Mean Corpuscular Hgb 29.6 pg (27.0-32.0); Mean Corpuscular Volume 89.2 fL (80-94); Mean Platelet Vol. 11.1 fl (6.2-12.0); Monocyte# 0.47 X10^3/uL; Monocyte% 8.6 % (0-10); NRBC Flagged by Analyzer 0 % (0-5); Neutrophil # 3.19 X10^3/uL (2.7-7.7); Neutrophil % 58.3 % (47-70); Platelet Count 242 K/mm3 (150-450); RBC Distribution Width CV 12.6 % (11.6-14.6); Red Blood Count 4.53 M/mm3 (4.6-6.2); White Blood Count 5.5 K/mm3 (4.4-11.0)
[2023-07-14 18:13] LABS: ALB/GLOB Ratio 0.9 RATIO (0.9-2.4); AST(SGOT) 20 U/L (15-37); Alanine Aminotransfer ALT/SGPT 25 U/L (16-61); Albumin, Serum 3.4 g/dL (3.2-5.0); Alkaline Phosphatase 59 U/L (45-117); Anion Gap 5 (5-15); BUN 21 mg/dL (7-18); BUN/Creat Ratio 22.8 RATIO (10-20); Calcium,Total 8.9 mg/dL (8.5-10.1); Chloride 105 mmol/L (98-107); Creatinine, Serum 0.92 mg/dL (0.70-1.30); EST Glomerular Filtration Rate 95 mL/min (>60); Est Glom Filt Rate - Afr Amer 115 mL/min (>60); Globulin 3.9 g/dL (2.2-4.2); Glucose 95 mg/dL (74-106); Potassium 3.8 mmol/L (3.5-5.1); Protein, Total 7.3 g/dL (6.4-8.2); Sodium Level 137 mmol/L (136-145); Thyroid Stim Hormone (TSH) 1.98 uIU/mL (0.358-3.74)
== END | disposition home or self-care (01) ==
LOC: MFPLAB 15:52
PROVIDERS: PCP Family Medicine; Visit Provider Family Medicine
DX: R10.9 Unspecified abdominal pain (principal); R61 Generalized hyperhidrosis
CPT/HCPCS: 36415; 80053; 84443; 85025